=== PATIENT | female | born 1975 | race American Indian/Alaskan Native ===

== ENCOUNTER 2020-12-12 17:39 | Emergency (ER) | payer OTHER ==
[2020-12-12 18:06] VITALS: BP 154/92
[2020-12-12] MEDS ORDERED: HYDROcodone/ACETAMINOPHEN 7.5-325MG TAB PO ONE (20:00)
[2020-12-12] MEDS ORDERED: NEOMY 3.5 MG/BACIT 400 UNITS/POLY B 5000 UNITS/GM OINT PACKET TP ONE (20:01)
--- NOTE | 2020-12-12 20:17 | Emergency Department Report ---
- General Chief complaint: Skin/Abscess/Foreign Body Stated complaint: WOUND ON LEFT ARM Time Seen by Provider: 12/12/20 19:57 Source: patient Mode of arrival: Ambulatory Limitations: No Limitations - History of Present Illness Initial comments: Patient is a 45-year-old female presents emergency room complaints of an abscess to the left forearm that began several days ago. She states initially it started as a very small lump about the size of a bug bite. She states that limit she began noticing some more swelling to the forearm and started using warm compresses. She states that the lump opened and drained purulent and bloody material. She states that then today she was helping to move a trailer and that the trailer hitch caught her left forearm. She states that she again had some bloody and purulent drainage expressed. She states her tetanus immunization is up-to-date. She denies any fever, nausea, vomiting, diarrhea, chills, numbness, weakness. She denies any difficulty moving the arms. PMHx HTN. No allergies to medicines. - Related Data Previous Rx's Medication Instructions Recorded Last Taken Type Mupirocin [Bactroban 2% OINT] 1 applic TP TID #1 tube 12/12/20 Unknown Rx Sulfamethoxazole/Trimethoprim 1 each PO BID 7 Days #14 tablet 12/12/20 Unknown Rx [Bactrim DS TAB] traMADoL [Ultram 50 MG tab] 50 mg PO Q6HR PRN #12 tablet 12/12/20 Unknown Rx Allergies Allergy/AdvReac Type Severity Reaction Status Date / Time No Known Allergies Allergy Unverified 12/12/20 18:03 Abscess Boil HPI - HPI Chief Complaint: Skin/Abscess/Foreign Body Stated Complaint: WOUND ON LEFT ARM Time Seen by Provider: 12/12/20 19:57 Home Medications: Previous Rx's Medication Instructions Recorded Last Taken Type Mupirocin [Bactroban 2% OINT] 1 applic TP TID #1 tube 12/12/20 Unknown Rx Sulfamethoxazole/Trimethoprim 1 each PO BID 7 Days #14 tablet 12/12/20 Unknown Rx [Bactrim DS TAB] traMADoL [Ultram 50 MG tab] 50 mg PO Q6HR PRN #12 tablet 12/12/20 Unknown Rx Allergies/Adverse Reactions: Allergies Allergy/AdvReac Type Severity Reaction Status Date / Time No Known Allergies Allergy Unverified 12/12/20 18:03 ED Review of Systems ROS: Stated complaint: WOUND ON LEFT ARM Other details as noted in HPI Comment: All other systems reviewed and negative ED Past Medical Hx - Past Medical History Previous Medical History?: Yes Hx Hypertension: Yes - Surgical History Past Surgical History?: Yes Additional Surgical History: , fibroid removal - Medications Home Medications: Home Medications Medication Instructions Recorded Confirmed Last Taken Type Mupirocin [Bactroban 2% OINT] 1 applic TP TID #1 tube 12/12/20 Unknown Rx Sulfamethoxazole/Trimethoprim 1 each PO BID 7 Days #14 tablet 12/12/20 Unknown Rx [Bactrim DS TAB] traMADoL [Ultram 50 MG tab] 50 mg PO Q6HR PRN #12 tablet 12/12/20 Unknown Rx ED Physical Exam - General Limitations: No Limitations General appearance: alert, in no apparent distress - Head Head exam: Present: atraumatic, normocephalic - Eye Eye exam: Present: normal appearance - ENT ENT exam: Present: mucous membranes moist - Neurological Exam Neurological exam: Present: alert, oriented X3 - Psychiatric Psychiatric exam: Present: normal affect, normal mood - Skin Skin exam: Present: warm, dry, other (there is a 2 cm circular opening present to the left forearm, there is a small amount of bloody/purulent material, unable to express anymore purulent material, small amount of surrounding induration, no necrosis, FROM of the LUE, neurovascularly intact) ED Course Vital Signs 12/12/20 18:05 Temperature 99.1 F Pulse Rate 99 H Respiratory 18 Rate Blood Pressure 154/92 O2 Sat by Pulse 98 Oximetry ED Medical Decision Making - Medical Decision Making Patient is a 45-year-old female presents emergency room complaints of an abscess to the left forearm that began several days ago. She states initially it started as a very small lump about the size of a bug bite. She states that limit she began noticing some more swelling to the forearm and started using warm compresses. She states that the lump opened and drained purulent and bloody material. She states that then today she was helping to move a trailer and that the trailer hitch caught her left forearm. She states that she again had some bloody and purulent drainage expressed. She states her tetanus immunization is up-to-date. She denies any fever, nausea, vomiting, diarrhea, chills, numbness, weakness. She denies any difficulty moving the arms. PMHx HTN. No allergies to medicines. vss. on exam: there is a 2 cm circular opening present to the left forearm, there is a small amount of bloody/purulent material, unable to express anymore purulent material, small amount of surrounding induration, no necrosis, FROM of the LUE, neurovascularly intact. Examination appears consistent with an abscess that has now opened and drained on its own, she has a skin avulsion present and some mild cellulitis. Wound irrigated with saline and cleansed by manager filter and triple antibiotic ointment and dressing placed. Patient given prescription for medications. Discussed very strict return precautions with patient. Discussed the importance of reevaluation with primary care doctor. Advised patient Please use medication as prescribed. Please wash with antibacterial soap and water twice a day and pat dry. Please continue to use warm compresses. Follow-up with your primary care doctor in the next 2 to 3 days for reexamination. Return to emergency room immediately for any new or worsening symptoms including but not limited to worsening swelling, worsening redness, worsening drainage, fever, vomiting, etc. do not drive or operate heavy machinery while taking pain medication. Critical care attestation.: If time is entered above; I have spent that time in minutes in the direct care of this critically ill patient, excluding procedure time. ED Disposition Clinical Impression: Abscess, Skin avulsion Cellulitis Qualifiers: Site of cellulitis: extremity Site of cellulitis of extremity: upper extremity Laterality: left Qualified Code(s): L03.114 - Cellulitis of left upper limb Disposition: TO HOME OR SELFCARE Is pt being admited?: No Does the pt Need Aspirin: No Condition: Stable Instructions: Skin Abscess, Cellulitis, Adult, Deep Skin Avulsion Additional Instructions: Please use medication as prescribed. Please wash with antibacterial soap and water twice a day and pat dry. Please continue to use warm compresses. Follow- up with your primary care doctor in the next 2 to 3 days for reexamination. Return to emergency room immediately for any new or worsening symptoms including but not limited to worsening swelling, worsening redness, worsening drainage, fever, vomiting, etc. do not drive or operate heavy machinery while taking pain medication. Prescriptions: Sulfamethoxazole/Trimethoprim [Bactrim DS TAB] 1 each PO BID 7 Days #14 tablet Mupirocin [Bactroban 2% OINT] 1 applic TP TID #1 tube traMADoL [Ultram 50 MG tab] 50 mg PO Q6HR PRN #12 tablet PRN Reason: Pain , Severe (7-10) Referrals: your, primary care doctor [Other] - 2-3 Days Time of Disposition: 20:15 Print Language: CHINESE
== END 2020-12-12 21:25 | disposition home or self-care (01) ==
LOC: ED 17:39
DX: T14.8XXA Other injury of unspecified body region, initial encounter (principal); L02.414 Cutaneous abscess of left upper limb; L03.114 Cellulitis of left upper limb; X58.XXXA Exposure to other specified factors, initial encounter; Y93.89 Activity, other specified; Y92.89 Other specified places as the place of occurrence of the external cause; Y99.8 Other external cause status
CPT/HCPCS: 99282; A6250